=== PATIENT | male | born 1995 | race Caucasian/White ===

== ENCOUNTER 2020-01-07 08:04 | Outpatient (CLI) | payer SELFPAY | END 2020-01-07 08:05 | disposition EMS.NT | LOC: EMS 08:04 | PROVIDERS: ATTEND Surgery | DX: R55 Syncope and collapse (principal); F41.9 Anxiety disorder, unspecified ==

== ENCOUNTER 2021-05-29 17:33 | Emergency (ER) | payer BC ==
--- NOTE | 2021-05-29 18:14 | ED Physician Documentation ---
History of Present Illness - Stated complaint Stated Complaint: DIZZINESS,LETHARGIC - Chief complaint Chief Complaint: General - History obtained from History obtained from: Patient - Additonal information Additional information: 25-year-old gentleman presents to the emergency department for chronic sleep issues dizziness and presyncopal episodes. States that for a long time he really does not sleep much if at all on the nights that he works, and then during his weekend he will sleep for up to a couple of days at a time. He feels dizzy and weak and is often nauseous. He denies abdominal pain. He is thin but is not losing weight. Does not take any medications. No drug use except for CBD and nicotine. Review of Systems Constitutional: reports: Fatigue. denies: Fever, Chills, Weight Loss Nose: denies: Rhinorrhea / runny nose, Congestion Cardiac: reports: Chest pain / pressure (Occasional pinching Right-sided chest pains) Respiratory: reports: Dyspnea. denies: Cough GI: reports: Nausea. denies: Abdominal Pain, Vomiting, Diarrhea PD PAST MEDICAL HISTORY - Present Medications Home Medications: Ambulatory Orders Medication Instructions Recorded Confirmed traZODone [Desyrel] 50 mg PO HS #30 tablet 05/29/21 - Allergies Allergies/Adverse Reactions: Allergies Allergy/AdvReac Type Severity Reaction Status Date / Time No Known Drug Allergies Allergy Verified 05/29/21 17:39 PD ED PE NORMAL - Vitals Vital signs reviewed: Yes - General General: Alert and oriented X 3, No acute distress - HEENT HEENT: PERRL, EOMI, Dentition benign - Neck Neck: Supple, no meningeal sign, No bony TTP - Cardiac Cardiac: RRR, No murmur - Respiratory Respiratory: No respiratory distress, Clear bilaterally - Abdomen Abdomen: Normal bowel sounds, Soft, Non tender - Back Back: No CVA TTP, No spinal TTP - Derm Derm: Normal color, Warm and dry - Extremities Extremities: No edema, No calf tenderness / cord - Neuro Neuro: Alert and oriented X 3, Normal speech Results - Vitals Vitals: Vital Signs - 24 hr 05/29/21 17:39 Temperature 36.5 C Heart Rate 73 Respiratory 16 Rate Blood Pressure 150/88 H O2 Saturation 100 Oxygen O2 Source Room air - EKG (time done) 1821 Rate: Rate (enter#) (56) Rhythm: NSR [place]: Normal Intervals: Normal CO QRS: Normal Ischemia: ST elevation c/w repol. No: ST elevation c/w ischemia, ST depression - Labs Labs: Laboratory Tests 05/29/21 05/29/21 05/29/21 18:23 18:31 18:31 WBC 7.4 RBC 4.88 Hgb 14.4 Hct 41.7 L MCV 85.5 MCH 29.5 MCHC 34.5 RDW 11.9 L Plt Count 255 MPV 10.5 Neut # (Auto) 3.8 Lymph # (Auto) 2.8 [place] # (Auto) 0.6 Eos # (Auto) 0.2 Baso # (Auto) 0.1 Absolute Nucleated RBC 0.00 Nucleated RBC % 0.0 Sodium 135 Potassium 3.4 L Chloride 99 L Carbon Dioxide 26 Anion Gap 10.0 BUN 19 Creatinine 0.8 Estimated GFR (MDRD) 119 Glucose 96 Calcium 9.4 Magnesium 2.2 Total Bilirubin 0.8 AST 16 ALT 16 Alkaline Phosphatase 55 Total Protein 7.6 Albumin 4.9 Globulin 2.7 Albumin/Globulin Ratio 1.8 TSH Urine Opiates Screen NEGATIVE Ur Oxycodone Screen NEGATIVE Urine Methadone Screen NEGATIVE Ur Propoxyphene Screen NEGATIVE Ur Barbiturates Screen NEGATIVE Ur Tricyclics Screen NEGATIVE Ur Phencyclidine Scrn NEGATIVE Ur Amphetamine Screen NEGATIVE U Methamphetamines Scrn NEGATIVE U Benzodiazepines Scrn NEGATIVE Urine Cocaine Screen NEGATIVE U Cannabinoids Screen NEGATIVE 05/29/21 18:31 WBC RBC Hgb Hct MCV MCH MCHC RDW Plt Count MPV Neut # (Auto) Lymph # (Auto) [place] # (Auto) Eos # (Auto) Baso # (Auto) Absolute Nucleated RBC Nucleated RBC % Sodium Potassium Chloride Carbon Dioxide Anion Gap BUN Creatinine Estimated GFR (MDRD) Glucose Calcium Magnesium Total Bilirubin AST ALT Alkaline Phosphatase Total Protein Albumin Globulin Albumin/Globulin Ratio TSH 1.92 Urine Opiates Screen Ur Oxycodone Screen Urine Methadone Screen Ur Propoxyphene Screen Ur Barbiturates Screen Ur Tricyclics Screen Ur Phencyclidine Scrn Ur Amphetamine Screen U Methamphetamines Scrn U Benzodiazepines Scrn Urine Cocaine Screen U Cannabinoids Screen PD MEDICAL DECISION MAKING - ED course ED course: 25-year-old gentleman presents with fatigue and dizziness. Further history elucidates that when he has having a weekday he will often not sleep at all versus may be just a few hours of sleep and then basically he will be completely exhausted and sleep for a couple of days on his weekend. He says has been like this for a long time but has been worse lately. There is no medical cause elucidated for his fatigue and insomnia. Per the girlfriend he does not snore or have apneic episodes. We will trial trazodone to try to get him into good sleep pattern and discussed the need for primary care follow-up. Departure - Departure Disposition: Home, Self Care Clinical Impression: Insomnia Qualifiers: Insomnia type: primary Qualified Code(s): F51.01 - Primary insomnia Fatigue Qualifiers: Fatigue type: chronic, unspecified Qualified Code(s): R53.82 - Chronic fatigue, unspecified Condition: Good Record reviewed to determine appropriate education?: Yes Instructions: ED Insomnia Follow-Up: Cassie Hull MD [Provider Admit Priv/Credential] - Iesha Penn PA-C [Provider Admit Priv/Credential] - [facility] [Provider Group] [facility] [Provider Group] Prescriptions: traZODone [Desyrel] 50 mg PO HS #30 tablet Comments: I sent your prescription electronically to [facility] in [place]. Try to get into a regular schedule where you not sleeping much more last on the weekdays versus the weekends. Return if worsening. It is important to follow- up with primary care, several numbers on this form that you can try for primary care follow-up. Start that process on Monday.
[2021-05-29 18:30] LABS: MUDS CUTOFF CONCENTRATIONS CUTOFF CONC BELOW:
[2021-05-29 18:36] LABS: BASOPHILS # (AUTO) 0.1 10^3/uL (0.0-0.1); BASOPHILS % (AUTO) 0.7 %; EOSINOPHILS # (AUTO) 0.2 10^3/uL (0.0-0.7); EOSINOPHILS % (AUTO) 2.4 %; HCT - HEMATOCRIT 41.7 % (42.0-52.0); HGB - HEMOGLOBIN 14.4 g/dL (14.0-18.0); LYMPHOCYTES # (AUTO) 2.8 10^3/uL (1.5-3.5); LYMPHOCYTES % (AUTO) 38.1 %; MEAN CORPUSCULAR HEMOGLOBIN 29.5 pg (27.0-31.0); MEAN CORPUSCULAR HGB CONC 34.5 g/dL (32.0-36.0); MEAN CORPUSCULAR VOLUME 85.5 fL (80.0-94.0); MEAN PLATELET VOLUME 10.5 fL (7.4-11.4); MONOCYTES # (AUTO) 0.6 10^3/uL (0.0-1.0); MONOCYTES % (AUTO) 7.9 %; NEUTROPHILS # (AUTO) 3.8 10^3/uL (1.5-6.6); NEUTROPHILS % (AUTO) 50.9 %; PLT - PLATELET COUNT 255 10^3/uL (130-450); RED BLOOD COUNT 4.88 10^6/uL (4.70-6.10); RED CELL DISTRIBUTION WIDTH 11.9 % (12.0-15.0); WHITE BLOOD COUNT 7.4 x10^3/uL (4.8-10.8)
[2021-05-29 18:44] LABS: AMPHETAMINE SCREEN,URINE NEGATIVE (NEGATIVE); BARBITURATE SCREEN,UR NEGATIVE (NEGATIVE); BENZODIAZEPINES SCREEN, URINE NEGATIVE (NEGATIVE); COCAINE SCREEN URINE NEGATIVE (NEGATIVE); METHADONE SCREEN, URINE NEGATIVE (NEGATIVE); METHAMPHETAMINES SCREEN, URINE NEGATIVE (NEGATIVE); OPIATE SCREEN, URINE NEGATIVE (NEGATIVE); OXYCODONE SCREEN, URINE NEGATIVE (NEGATIVE); PROPOXYPHENE SCREEN, URINE NEGATIVE (NEGATIVE); THC CANNABINOID SCREEN, URINE NEGATIVE (NEGATIVE); TRICYCLIC ANTIDEPRESSANT,URINE NEGATIVE (NEGATIVE)
[2021-05-29 18:50] LABS: ALBUMIN 4.9 g/dL (3.2-5.5); ALBUMIN/GLOBULIN RATIO 1.8 (1.0-2.2); BILIRUBIN,TOTAL 0.8 mg/dL (0.2-1.0); CALCIUM 9.4 mg/dL (8.5-10.3); CREATININE 0.8 mg/dL (0.6-1.2); MAGNESIUM 2.2 mg/dL (1.7-2.8); POTASSIUM 3.4 mmol/L (3.5-5.0); TOTAL PROTEIN 7.6 g/dL (6.7-8.2)
[2021-05-29] MEDS ORDERED: traZODone 50 MG TABLET PO STA (19:23)
[2021-05-29 19:34] VITALS: BP 126/81
== END 2021-05-29 19:34 | disposition home or self-care (01) ==
LOC: ED 17:33
DX: F51.01 Primary insomnia (principal); R53.82 Chronic fatigue, unspecified
CPT/HCPCS: 36415; 80053; 80306; 83735; 84443; 85025; 93005; 99282; 99283; A9270

== ENCOUNTER 2022-09-19 08:19 | Emergency (ER) | payer BC ==
--- NOTE | 2022-09-19 09:12 | ED Physician Documentation ---
PD HPI HEENT - Stated complaint Stated Complaint: EYE DISCHARGE,FEVER,COUGH,SORE THROAT - Chief complaint Chief Complaint: Heent - History obtained from History obtained from: Patient - Additional information Additional information: The patient comes to the emergency department chief complaint of cough, sore throat, and runny nose for the last approximately 5 days. He has had some nausea but has not vomited. Today, he began to notice that his eyes seemed irritated, and that he had some "goopy" drainage from both eyes. He states his right eye has more injection but his left eye has more drainage. He does not use contact lenses. His girlfriend also has conjunctivitis. The patient denies any fevers or chills. He states he feels that his symptoms otherwise are improving slowly. No other complaints at this time. PD PAST MEDICAL HISTORY - Past Medical History Past Medical History: No Cardiovascular: None Respiratory: None Neuro: None Endocrine/Autoimmune: None GI: None : None HEENT: None Psych: Depression Musculoskeletal: None Derm: None - Past Surgical History Past Surgical History: Yes HEENT: Tonsil/Adenoidectomy - Present Medications Home Medications: Ambulatory Orders Medication Instructions Recorded Confirmed Gentamicin 0.3% Ophth Drops 1 drops OPTH BID #5 ml 09/19/22 [Garamycin] traZODone [Desyrel] 50 mg PO HS PRN 09/19/22 09/19/22 - Allergies Allergies/Adverse Reactions: Allergies Allergy/AdvReac Type Severity Reaction Status Date / Time No Known Drug Allergies Allergy Verified 09/19/22 08:31 - Social History Does the pt smoke?: No Smoking Status: Former smoker Does the pt drink ETOH?: Yes Does the pt have substance abuse?: Yes Substance Use and Type: CBD oil / Products - Immunizations Immunizations are current?: No Immunizations: Other immun not current PD ED PE NORMAL - Vitals Vital signs reviewed: Yes - General General: Alert and oriented X 3, No acute distress, Well developed/nourished - HEENT HEENT: Atraumatic, PERRL, EOMI, Moist mucous membranes, Pharynx benign, Other (Mild right conjunctival injection. No appreciable drainage. Fluorescein exam negative.) - Cardiac Cardiac: RRR, No murmur - Respiratory Respiratory: No respiratory distress, Clear bilaterally - Derm Derm: Normal color, Warm and dry, No rash - Extremities Extremities: No deformity, No edema - Neuro Neuro: Alert and oriented X 3 - Psych Psych: Normal mood, Normal affect Results - Vitals Vitals: Vital Signs - 24 hr 09/19/22 08:32 Temperature 98.1 C H Heart Rate 98 Respiratory 16 Rate Blood Pressure 116/72 O2 Saturation 98 Oxygen O2 Source Room air PD Medical Decision Making - ED course Complexity details: reviewed results, re-evaluated patient, considered differential, d/w patient ED course: The patient requested respiratory PCR panel, which is pending at this time. I have sent a prescription for antibiotic eyedrops to the pharmacy of the patient's choice. The patient is discharged home with instructions for symptomatic management. We will call him at home if his PCR panel shows any positive results. He is also been given information for the patient portal on our website. We have discussed the usual indications for return. Departure - Departure Disposition: 01 Home, Self Care Clinical Impression: Viral upper respiratory infection Conjunctivitis Qualifiers: Conjunctivitis type: unspecified Laterality: bilateral Qualified Code(s): H10.9 - Unspecified conjunctivitis Condition: Stable Instructions: ED Conjunctivitis Nonspecific, ED Viral Syndrome Prescriptions: Gentamicin 0.3% Ophth Drops [Garamycin] 1 drops OPTH BID #5 ml Comments: You appear to have a mild pinkeye both eyes, in the setting of a viral upper respiratory infection. A viral panel has been obtained and is pending at this time. This often takes few hours to come back, so we will call you at home for any positive results. We do not call back negative results, but you may visit our website at [email or web address], click on the "[employer]" tab, and sign up for the patient portal. In this way, you may review your results online, positive or negative. A prescription for antibiotic eyedrops has been electronically transmitted to the [facility] here in [place]. Please pick this up today and start your eyedrop course. Forms: PCP List
[2022-09-19 09:31] VITALS: BP 111/64; O2SAT 96
[2022-09-19 10:08] LABS: B. PARAPERTUSSIS- RESP PCR PAN NOT DETECTED; B. PERTUSSIS- RESP PCR PANEL NOT DETECTED; C. PNEUMONIAE- RESP PCR PANEL NOT DETECTED; CORONAVIRUS 229E-RESP PCR NOT DETECTED; CORONAVIRUS HKU1-RESP PCR NOT DETECTED; CORONAVIRUS NL63-RESP PCR NOT DETECTED; CORONAVIRUS OC43-RESP PCR NOT DETECTED; HUMAN METAPNEUMOVIRUS NOT DETECTED; INFLUENZA A- RESP PCR PANEL NOT DETECTED; INFLUENZA B - RESP PCR PANEL NOT DETECTED; M. PNEUMONIAE- RESP PCR PANEL NOT DETECTED; PARAINFLUENZA VIRUS 1 NOT DETECTED; PARAINFLUENZA VIRUS 2 NOT DETECTED; PARAINFLUENZA VIRUS 3 NOT DETECTED; PARAINFLUENZA VIRUS 4 NOT DETECTED; RHINOVIRUS/ENTEROVIRUS NOT DETECTED; RSV- RESP PCR PANEL NOT DETECTED; SARS-CoV-2 -RESP PCR PANEL NOT DETECTED
== END 2022-09-19 09:20 | disposition home or self-care (01) ==
LOC: ED 08:19
DX: J06.9 Acute upper respiratory infection, unspecified (principal); Z20.822 Contact with and (suspected) exposure to COVID-19
CPT/HCPCS: 87633; 99283

== ENCOUNTER 2022-10-04 20:58 | Outpatient (CLI) | payer BC ==
--- NOTE | 2022-10-05 16:32 | Ultrasound Report ---
PROCEDURE: Testicle INDICATIONS: LEFT TESTICULAR MASS TECHNIQUE: Real-time scanning was performed of the scrotum and testicles, with image documentation. Color and p ulse Doppler interrogation was performed of both testicles. COMPARISON: None. FINDINGS: Right: Testicle is normal in size at 4.9 x 2.4 x 2 point cm, and homogenous in echotexture. Epididy mis is normal in overall size and morphology. No hydrocele. No varicoceles. Overlying scrotal skin is normal in thickness. Left: Testicle is normal in size at 4.6 x 2.3 x 2.8 cm, and homogeneous in echotexture. Epididymis is normal in overall size and morphology. No hydrocele. No varicoceles. Overlying scrotal skin is n ormal in thickness. Doppler: Color and pulse Doppler demonstrate normal and symmetric arterial flow in both testicles. IMPRESSION: Unremarkable exam. Reviewed by: Aleida De Leon MD on 10/05/2022 4:31 PM PDT Approved by: Aleida De Leon MD on 10/05/2022 4:31 PM PDT Station ID: [id number]
== END 2022-10-04 20:59 | disposition home or self-care (01) ==
LOC: DI 20:58
PROVIDERS: ATTEND Physician Assistant Medical
DX: N50.9 Disorder of male genital organs, unspecified (principal)